=== PATIENT | male | born 1930 | race Caucasian/White ===

== ENCOUNTER 2018-04-19 09:24 | Outpatient (CLI) | payer OTHER ==
[~2018-04-19 09:24] MED LIST: BENADRYL50 MG; JANUVIA100 MG; PRILOSEC20 MG; SIMVASTATIN5 MG
== END 2018-04-19 09:30 | disposition home or self-care (01) ==
LOC: NUCLEAR 09:24
DX: D35.1 Benign neoplasm of parathyroid gland (principal)
CPT/HCPCS: 78072; A9500

== ENCOUNTER 2018-10-05 07:25 | Emergency (ER) | payer OTHER ==
[~2018-10-05] VITALS: Ht 182.9 cm; Wt 83.9 kg
[2018-10-05] MEDS ORDERED: GLIMEPIRIDE2 MG PO (07:44)
[2018-10-05] MEDS ORDERED: METFORMIN HYDRO25 GM MC (07:44)
[2018-10-05] MEDS ORDERED: CELECOXIB100 MG PO (12:28)
[2018-10-05] MEDS ORDERED: SKELAXIN800 MG PO (12:28)
== END 2018-10-05 12:38 | disposition home or self-care (01) ==
LOC: ER
DX: S33.5XXA Sprain of ligaments of lumbar spine, initial encounter (principal); X50.3XXA Overexertion from repetitive movements, initial encounter; Y93.89 Activity, other specified; Y92.098 Other place in other non-institutional residence as the place of occurrence of the external cause; Y99.8 Other external cause status

== ENCOUNTER 2019-01-08 07:14 | Outpatient (CLI) | payer OTHER ==
[~2019-01-08 07:14] MED LIST changes: +CELECOXIB100 MG PO; +GLIMEPIRIDE2 MG PO; +METFORMIN HYDRO25 GM MC; +SKELAXIN800 MG PO
== END 2019-01-08 07:15 | disposition home or self-care (01) ==
LOC: SONOGRAMA 07:14 → MAMO-SONO 08:15
DX: R10.84 Generalized abdominal pain (principal)

== ENCOUNTER → 2019-08-10 | Outpatient (CLI) | payer OTHER | END | disposition home or self-care (01) | LOC: SONOGRAMA 08:36 → MAMO-SONO 08:45 | DX: R35.1 Nocturia (principal) ==

== ENCOUNTER 2020-03-16 09:01 | Outpatient (CLI) | payer OTHER | END 2020-03-16 09:05 | disposition home or self-care (01) | LOC: SONOGRAMA 09:01 | PROVIDERS: ATTEND Specialist | DX: E04.2 Nontoxic multinodular goiter (principal); I13.2 Hypertensive heart and chronic kidney disease with heart failure and with stage 5 chronic kidney disease, or end stage renal disease ==

== ENCOUNTER → 2020-06-29 | Outpatient (CLI) | payer OTHER | END | disposition home or self-care (01) | LOC: MAMO-SONO 10:26 | PROVIDERS: ATTEND Specialist | DX: N64.4 Mastodynia (principal); N64.59 Other signs and symptoms in breast ==

== ENCOUNTER 2021-03-04 08:53 | Outpatient (CLI) | payer OTHER | END 2021-03-04 09:01 | disposition home or self-care (01) | LOC: RAD 08:53 | PROVIDERS: ATTEND Internal Medicine Gastroenterology | DX: M25.531 Pain in right wrist (principal); M25.532 Pain in left wrist ==

== ENCOUNTER 2021-03-09 14:54 | Emergency (ER) | payer OTHER ==
[~2021-03-09] VITALS: Ht 182.9 cm; Wt 80.7 kg
[2021-03-09] MEDS ORDERED: SYNTHROID50 MCG (15:07)
== END 2021-03-09 19:07 | disposition home or self-care (01) ==
LOC: ER 14:54
DX: S93.491A Sprain of other ligament of right ankle, initial encounter (principal); S80.01XA Contusion of right knee, initial encounter; R55 Syncope and collapse; W18.09XA Striking against other object with subsequent fall, initial encounter; Y93.89 Activity, other specified; Y92.018 Other place in single-family (private) house as the place of occurrence of the external cause; Y99.8 Other external cause status

== ENCOUNTER 2021-03-12 08:02 | Outpatient (CLI) | payer OTHER ==
[~2021-03-12 08:02] MED LIST changes: +SYNTHROID50 MCG
== END 2021-03-12 08:03 | disposition home or self-care (01) ==
LOC: NUCLEAR 08:02
PROVIDERS: ATTEND Specialist
DX: G90.01 Carotid sinus syncope (principal); G45.8 Other transient cerebral ischemic attacks and related syndromes

== ENCOUNTER 2021-03-18 08:46 | Outpatient (CLI) | payer OTHER | END 2021-03-18 08:56 | disposition home or self-care (01) | LOC: MRI 08:46 | PROVIDERS: ATTEND Specialist | DX: I63.429 Cerebral infarction due to embolism of unspecified anterior cerebral artery (principal) | CPT/HCPCS: 70552 ==

== ENCOUNTER 2021-09-07 07:26 | Outpatient (CLI) | payer OTHER ==
[2021-09-07] MEDS ORDERED: TRULICITY0.75 MG/0. SQ (11:59)
[2021-09-07] MEDS ORDERED: TRULICITY1.5 MG/0.5 (14:05)
[2021-09-07] MEDS ORDERED: OTREXUP 1212.5 MG/0. (14:06)
[2021-09-07] MEDS ORDERED: TRADJENTA5 MG (14:13)
[2021-09-07] MEDS ORDERED: LEVOXYL25 MCG (14:15)
[2021-09-07] MEDS ORDERED: ADRENOID CAPSU1 EACH (14:16)
[2021-09-07] MEDS ORDERED: ACIDOPHILUS1 EAC1 (14:16)
[2021-09-07] MEDS ORDERED: IRON236 MG (14:16)
[2021-09-07] MEDS ORDERED: ADULT LOW DOSE81 M1 (14:17)
[2021-09-07] MEDS ORDERED: MULTI VITAMIN1 EACH (14:17)
[2021-09-08] MEDS ORDERED: MILLIPRED5 MG PO (12:35)
== END 2021-09-07 07:30 | disposition home or self-care (01) ==
LOC: TOM 07:26
PROVIDERS: ATTEND Specialist
DX: J40 Bronchitis, not specified as acute or chronic (principal)

== ENCOUNTER 2021-09-07 11:35 | Inpatient (IN) | payer OTHER ==
[~2021-09-07] VITALS: Ht 182.9 cm; Wt 70.3 kg
[2021-09-07] MEDS ORDERED: TRULICITY0.75 MG/0. SQ (11:59)
[2021-09-07] MEDS ORDERED: TRULICITY1.5 MG/0.5 (14:05)
[2021-09-07] MEDS ORDERED: OTREXUP 1212.5 MG/0. (14:06)
[2021-09-07] MEDS ORDERED: TRADJENTA5 MG (14:13)
[2021-09-07] MEDS ORDERED: LEVOXYL25 MCG (14:15)
[2021-09-07] MEDS ORDERED: ACIDOPHILUS1 EAC1 (14:16)
[2021-09-07] MEDS ORDERED: ADRENOID CAPSU1 EACH (14:16)
[2021-09-07] MEDS ORDERED: IRON236 MG (14:16)
[2021-09-07] MEDS ORDERED: MULTI VITAMIN1 EACH (14:17)
[2021-09-07] MEDS ORDERED: ADULT LOW DOSE81 M1 (14:17)
[2021-09-08] MEDS ORDERED: MILLIPRED5 MG PO (12:35)
[2021-09-10] MEDS ORDERED: JANUVIA50 MG (09:15)
[2021-09-10] MEDS ORDERED: EZETIMIBE10 MG (09:16)
[2021-09-10] MEDS ORDERED: METHOTREXATE2.5 MG (09:16)
[2021-09-10] MEDS ORDERED: PREDNISONE20 M1 (09:16)
== END 2021-09-15 12:26 | disposition home or self-care (01) | DRG 811 ==
LOC: ER 11:35 → ICU-2 17:05 → MEDJ 09-09 20:24
PROVIDERS: ADMIT Specialist; ATTEND Specialist
PROC: 30233N1 Transfusion of Nonautologous Red Blood Cells into Peripheral Vein, Percutaneous Approach (ICD-10-PCS; principal; 2021-09-08)
PROC: B24BZZZ Ultrasonography of Heart with Aorta (ICD-10-PCS; 2021-09-08)
PROC: 4A12X4Z Monitoring of Cardiac Electrical Activity, External Approach (ICD-10-PCS; 2021-09-10)
PROC: 4A02XM4 Measurement of Cardiac Total Activity, External Approach (ICD-10-PCS; 2021-09-14)
DX: D46.20 Refractory anemia with excess of blasts, unspecified (principal); I21.A1 Myocardial infarction type 2; I47.1 Supraventricular tachycardia; D53.1 Other megaloblastic anemias, not elsewhere classified; I11.9 Hypertensive heart disease without heart failure; Z79.4 Long term (current) use of insulin; Z20.822 Contact with and (suspected) exposure to COVID-19; M35.3 Polymyalgia rheumatica; E11.9 Type 2 diabetes mellitus without complications

== ENCOUNTER 2021-09-21 11:31 | Emergency (ER) | payer OTHER ==
[~2021-09-21] VITALS: Ht 182.9 cm; Wt 70.3 kg
[~2021-09-21 11:31] MED LIST changes: +ACIDOPHILUS1 EAC1; +ADRENOID CAPSU1 EACH; +ADULT LOW DOSE81 M1; +EZETIMIBE10 MG; +IRON236 MG; +JANUVIA50 MG; +LEVOXYL25 MCG; +METHOTREXATE2.5 MG; +MILLIPRED5 MG PO; +MULTI VITAMIN1 EACH; +OTREXUP 1212.5 MG/0.; +PREDNISONE20 M1; +TRADJENTA5 MG; +TRULICITY0.75 MG/0. SQ; +TRULICITY1.5 MG/0.5
[2021-09-21] MEDS ORDERED: LOPRESSOR HCT1 EACH PO (11:42)
[2021-09-21] MEDS ORDERED: AMIODARONE HCL100 MG (11:43)
== END 2021-09-21 14:46 | disposition home or self-care (01) ==
LOC: ER 11:31
DX: R53.1 Weakness (principal); R42 Dizziness and giddiness; M35.3 Polymyalgia rheumatica

== ENCOUNTER 2021-10-23 08:33 | Outpatient (CLI) | payer OTHER ==
[~2021-10-23 08:33] MED LIST changes: +AMIODARONE HCL100 MG; +LOPRESSOR HCT1 EACH PO
== END 2021-10-23 08:39 | disposition home or self-care (01) ==
LOC: RAD 08:33
PROVIDERS: ATTEND Internal Medicine Rheumatology
DX: J45.991 Cough variant asthma (principal)

== ENCOUNTER 2021-11-16 06:38 | Outpatient (CLI) | payer OTHER | END 2021-11-16 06:39 | disposition home or self-care (01) | LOC: LAB 06:38 | PROVIDERS: ATTEND Specialist | DX: H34.8120 Central retinal vein occlusion, left eye, with macular edema (principal); E72.12 Methylenetetrahydrofolate reductase deficiency; M32.9 Systemic lupus erythematosus, unspecified ==

== ENCOUNTER 2021-11-18 08:55 | Outpatient (CLI) | payer OTHER | END 2021-11-18 14:11 | disposition home or self-care (01) | LOC: NUCLEAR 08:55 | PROVIDERS: ATTEND Ophthalmology | DX: H35.82 Retinal ischemia (principal) ==

== ENCOUNTER 2022-02-18 07:02 | Outpatient (CLI) | payer OTHER | END 2022-02-18 07:08 | disposition home or self-care (01) | LOC: LAB 07:02 | PROVIDERS: ATTEND Internal Medicine Hematology & Oncology | DX: D50.8 Other iron deficiency anemias (principal); I10 Essential (primary) hypertension; R74.02 Elevation of levels of lactic acid dehydrogenase [LDH]; K76.89 Other specified diseases of liver; D46.9 Myelodysplastic syndrome, unspecified; E72.12 Methylenetetrahydrofolate reductase deficiency; E72.11 Homocystinuria; M35.3 Polymyalgia rheumatica; D51.3 Other dietary vitamin B12 deficiency anemia; E03.8 Other specified hypothyroidism ==

== ENCOUNTER 2022-03-18 11:43 | Inpatient (IN) | payer OTHER ==
[~2022-03-18] VITALS: Ht 182.9 cm; Wt 70.3 kg
[2022-03-18] MEDS ORDERED: FUSION CAPSULE1 EACH PO (12:07)
[2022-03-18] MEDS ORDERED: TRULICITY0.75 MG/0. (12:08)
[2022-03-18] MEDS ORDERED: METH16TA PO (12:09)
[2022-03-18] MEDS ORDERED: MEDROL4 MG PO (12:09)
[2022-03-22] MEDS ORDERED: PREDNISONE20 M1 (11:27)
[2022-03-22] MEDS ORDERED: CYANOCOBAL1000 MCG/1 (11:27)
[2022-03-22] MEDS ORDERED: ABANEU-SL TABL1 EACH (11:27)
[2022-04-04] MEDS ORDERED: INSULINA LANTUS (19:16)
== END 2022-03-28 22:21 | disposition home or self-care (01) | DRG 280 ==
LOC: ER 11:43 → MEDI 15:10
PROVIDERS: ADMIT Specialist; ATTEND Specialist
PROC: 4A12X4Z Monitoring of Cardiac Electrical Activity, External Approach (ICD-10-PCS; 2022-03-18)
PROC: 30233N1 Transfusion of Nonautologous Red Blood Cells into Peripheral Vein, Percutaneous Approach (ICD-10-PCS; principal; 2022-03-19)
PROC: 06H03DZ Insertion of Intraluminal Device into Inferior Vena Cava, Percutaneous Approach (ICD-10-PCS; 2022-03-26)
DX: I48.21 Permanent atrial fibrillation (principal); E11.00 Type 2 diabetes mellitus with hyperosmolarity without nonketotic hyperglycemic-hyperosmolar coma (NKHHC); I21.A1 Myocardial infarction type 2; I26.93 Single subsegmental thrombotic pulmonary embolism without acute cor pulmonale; D46.C Myelodysplastic syndrome with isolated del(5q) chromosomal abnormality; I82.431 Acute embolism and thrombosis of right popliteal vein; E27.3 Drug-induced adrenocortical insufficiency; I47.1 Supraventricular tachycardia; M35.3 Polymyalgia rheumatica; E11.21 Type 2 diabetes mellitus with diabetic nephropathy; D50.0 Iron deficiency anemia secondary to blood loss (chronic); D63.8 Anemia in other chronic diseases classified elsewhere; E03.9 Hypothyroidism, unspecified; Z79.84 Long term (current) use of oral hypoglycemic drugs; Z79.52 Long term (current) use of systemic steroids; T38.0X5A Adverse effect of glucocorticoids and synthetic analogues, initial encounter

== ENCOUNTER 2022-04-28 09:41 | Inpatient (IN) | payer OTHER ==
[~2022-04-28] VITALS: Ht 182.9 cm; Wt 72.1 kg
[~2022-04-28 09:41] MED LIST changes: +ABANEU-SL TABL1 EACH; +CYANOCOBAL1000 MCG/1; +FUSION CAPSULE1 EACH PO; +INSULINA LANTUS; +MEDROL4 MG PO; +METH16TA PO; +TRULICITY0.75 MG/0.
--- NOTE | 2022-04-28 10:12 | NUR ---
SE RECIBE PTE EN AMBULANCIA ALERTA Y ORIENTADO X3 QUIEN REFIERE HEMOGLOBIMA BAJA (6) DESDE FELIX. SE JONG S/V Y SE UBICA EN OBS #6.
[2022-04-28] MEDS ORDERED: ELIQUIS2.5 MG PO (10:18)
[2022-04-28] MEDS ORDERED: INSULIN LI100 UNIT/3 SQ (10:19)
[2022-04-28] MEDS ORDERED: FOLIC ACID1 MG PO (10:20)
--- NOTE | 2022-04-28 11:27 | NUR ---
PACIENTE EVALUDA POR DR ANGELY PATRICIO QUIEN [place] MED[place], SE ORIENTA A PACIENTE SOBRE EL MISMO Y REFIERE ENTENDER. SE COLECTAN MUESTRAS DE LABORATORIO Y SE CANALIZA BAJO MEDIDAS ASEPTICAS. PACIENTE CANALIZADO EN RA X2 CON ANGIO #20 10:18AM: SE LLAMA A BANCO DE PETER Y MS RAMOS INDICA QUE PACIENTE TIENE RECORD VIGENTE. SE MANTIENE PACIENTE BAJO OBSERVACION POR CAMBIOS EN IRVIN TRATAMIENTO.
--- NOTE | 2022-04-28 13:01 | NUR ---
12:00 SE LLEVA MUESTRA A LABORATORIO Y MS HERNDON VERIFICO REQUICION 12:10PM: SE LLAMA A BANCO DE PETER Y SE NOTIFICA A MS BAUZO QUE SE DEJO REQUISON EN LABORATORIO.
[2022-05-02] MEDS ORDERED: PREDNISONE20 M1 (10:08)
[2022-05-02] MEDS ORDERED: TRULICITY1.5 MG/0.5 (10:08)
== END 2022-06-08 16:44 | DRG 811 ==
LOC: ER 09:41 → SURH 19:39 → ICU-2 20:52 → ICU 05-01 12:38 → MEDJ 05-03 20:34 → ICU 05-06 14:28 → MEDI 05-17 19:51
PROVIDERS: ADMIT Specialist; ATTEND Specialist
PROC: 30233N1 Transfusion of Nonautologous Red Blood Cells into Peripheral Vein, Percutaneous Approach (ICD-10-PCS; principal; 2022-04-28)
PROC: 02HV33Z Insertion of Infusion Device into Superior Vena Cava, Percutaneous Approach (ICD-10-PCS; 2022-05-02)
PROC: 4A12X4Z Monitoring of Cardiac Electrical Activity, External Approach (ICD-10-PCS; 2022-05-03)
PROC: 30243N1 Transfusion of Nonautologous Red Blood Cells into Central Vein, Percutaneous Approach (ICD-10-PCS; 2022-05-07)
PROC: 5A09457 Assistance with Respiratory Ventilation, 24-96 Consecutive Hours, Continuous Positive Airway Pressure (ICD-10-PCS; 2022-05-14)
PROC: 8E0ZXY6 Isolation (ICD-10-PCS; 2022-05-17)
DX: D50.0 Iron deficiency anemia secondary to blood loss (chronic) (principal); J96.01 Acute respiratory failure with hypoxia; D46.C Myelodysplastic syndrome with isolated del(5q) chromosomal abnormality; B37.49 Other urogenital candidiasis; R78.81 Bacteremia; D84.821 Immunodeficiency due to drugs; E72.12 Methylenetetrahydrofolate reductase deficiency; D68.59 Other primary thrombophilia; I27.82 Chronic pulmonary embolism; I48.0 Paroxysmal atrial fibrillation; D51.0 Vitamin B12 deficiency anemia due to intrinsic factor deficiency; E11.65 Type 2 diabetes mellitus with hyperglycemia; B95.61 Methicillin susceptible Staphylococcus aureus infection as the cause of diseases classified elsewhere; M35.3 Polymyalgia rheumatica; E03.9 Hypothyroidism, unspecified; Z79.4 Long term (current) use of insulin; Z79.52 Long term (current) use of systemic steroids; Z95.5 Presence of coronary angioplasty implant and graft; Z66 Do not resuscitate

== ENCOUNTER 2022-07-21 13:20 | Inpatient (IN) | payer OTHER ==
[~2022-07-21] VITALS: Ht 167.6 cm; Wt 63.5 kg
[~2022-07-21 13:20] MED LIST changes: +ELIQUIS2.5 MG PO; +FOLIC ACID1 MG PO; +INSULIN LI100 UNIT/3 SQ
[2022-07-21] MEDS ORDERED: TOPROL XL100 M1 (13:45)
[2022-07-21] MEDS ORDERED: COZAAR50 MG (13:45)
[2022-07-21] MEDS ORDERED: TRADJENTA5 MG (13:45)
[2022-07-21] MEDS ORDERED: REVLIMID5 MG (13:45)
--- NOTE | 2022-07-21 13:46 | NUR ---
SE RECIBE PTE ALERTA Y ORIENTADO EN DEBBY OLAMIDE ESFERAS, EL CUAL LLEGA EN AMBULANCIA, REFIERE HEMOGLOBINA BAJA (6.4) EN LABORATORIOS HACE 2 GARCÍA. SE REALIZA DXT- 68MG/DL. B/P MANUAL 60/28, SE PRESENTA PTE AL DR PATINO Y SE UBICA EN AREA DE CHEST PAIN. PTE INDICA GISELLE TOMADO MEDICAMENTOS PARA HBP Y DE USO DIARIO PARA CONTROL DE GLUCOSA ANTES DE QUE LA AMBULANCIA LO BUSCARA.
--- NOTE | 2022-07-21 15:06 | NUR ---
PTE EVALUADO POR QUIEN [place] MED. SE EDUCA A PTE SOBRE EL MISMO Y REFIERE ENTENDER. PTE BERT JONG MUESTRAS BAJO MEIDAS ACEPTICAS. PTE PEND A ENTREGA DE ORINA. PTE SE CONECTA A MONITOR CARDIACO Y SE MENTIENE EN CAMA BAJA CON BARANDAS ELEVADAS. PTE PEND A CONSULTA DE MD Y RESULTADOS DE LAB.
--- NOTE | 2022-07-21 15:51 | NUR ---
SE COLOCA HARDY BAJO MEDIDAS ESTERILES.
== END 2022-07-26 19:00 | disposition home or self-care (01) | DRG 808 ==
LOC: ER 13:20 → ICU-2 18:47
PROVIDERS: ADMIT Specialist; ATTEND Specialist
PROC: 30233N1 Transfusion of Nonautologous Red Blood Cells into Peripheral Vein, Percutaneous Approach (ICD-10-PCS; principal; 2022-07-22)
PROC: 02HV33Z Insertion of Infusion Device into Superior Vena Cava, Percutaneous Approach (ICD-10-PCS; 2022-07-22)
PROC: 30243N1 Transfusion of Nonautologous Red Blood Cells into Central Vein, Percutaneous Approach (ICD-10-PCS; 2022-07-23)
DX: D61.9 Aplastic anemia, unspecified (principal); I21.A1 Myocardial infarction type 2; D46.C Myelodysplastic syndrome with isolated del(5q) chromosomal abnormality; M33.20 Polymyositis, organ involvement unspecified; E27.2 Addisonian crisis; B37.49 Other urogenital candidiasis; I50.32 Chronic diastolic (congestive) heart failure; I11.0 Hypertensive heart disease with heart failure; I48.91 Unspecified atrial fibrillation; L89.150 Pressure ulcer of sacral region, unstageable; E11.622 Type 2 diabetes mellitus with other skin ulcer; B95.61 Methicillin susceptible Staphylococcus aureus infection as the cause of diseases classified elsewhere; B96.20 Unspecified Escherichia coli [E. coli] as the cause of diseases classified elsewhere; E11.40 Type 2 diabetes mellitus with diabetic neuropathy, unspecified; D51.0 Vitamin B12 deficiency anemia due to intrinsic factor deficiency; Z79.52 Long term (current) use of systemic steroids; D50.0 Iron deficiency anemia secondary to blood loss (chronic)

== ENCOUNTER 2022-09-02 09:44 | Inpatient (IN) | payer OTHER ==
[~2022-09-02] VITALS: Ht 182.9 cm; Wt 65.8 kg
[~2022-09-02 09:44] MED LIST changes: +COZAAR50 MG; +HUMULIN R100 UNIT/1; +LANOXIN62.5 MCG; +REVLIMID5 MG; +TOPROL XL100 M1
[2022-09-02] MEDS ORDERED: TOPROL XL25 M1 PO (10:23)
[2022-09-02] MEDS ORDERED: MEDROL (10:23)
[2022-09-02] MEDS ORDERED: ELIQUIS2.5 MG PO (10:23)
[2022-09-02] MEDS ORDERED: LANOXIN125 MCG PO (10:24)
[2022-09-02] MEDS ORDERED: LEVOTHYROXINE25 MCG PO (10:25)
[2022-09-02] MEDS ORDERED: AUGMENTIN (10:25)
[2022-09-02] MEDS ORDERED: [UNRECOGNIZED DRUG - OTHER] (10:25)
--- NOTE | 2022-09-02 10:26 | NUR ---
SE RECIBE PTE ALERTO Y ORIENTADO X3 EN AMBULANCIA CON FAMILIAR. PTE REFIERE PERDIDA DE VISION EN EL FREDERICK DE HOY 0530, HX DM. VERBALIZA QUE EN EL HOGAR DXT 57, AMBULANCIA VERBALIZA DXT 107 EN HUSSEIN. SE ETHAN DXT Y SV, DXT EN 44. SE REPORTA SV A DR PATINO QUIEN [place] RN COYLE REALIZA LOS MISMOS. RN COYLE REALIZA VENOPUNCION ANGIO #22 RA, IV FLUIDS DXT 5% @100ML/HR. SE MANTIENE EN OBSERVACION.
== END 2022-09-08 15:36 | disposition home or self-care (01) | DRG 637 ==
LOC: ER 09:44 → MEDJ 14:15
PROVIDERS: ADMIT Specialist; ATTEND Specialist
PROC: 4A12X4Z Monitoring of Cardiac Electrical Activity, External Approach (ICD-10-PCS; principal; 2022-09-02)
DX: E11.649 Type 2 diabetes mellitus with hypoglycemia without coma (principal); I21.A1 Myocardial infarction type 2; E27.2 Addisonian crisis; L02.413 Cutaneous abscess of right upper limb; L03.113 Cellulitis of right upper limb; B37.49 Other urogenital candidiasis; D46.C Myelodysplastic syndrome with isolated del(5q) chromosomal abnormality; D84.821 Immunodeficiency due to drugs; E72.12 Methylenetetrahydrofolate reductase deficiency; N17.8 Other acute kidney failure; B95.61 Methicillin susceptible Staphylococcus aureus infection as the cause of diseases classified elsewhere; L89.106 Pressure-induced deep tissue damage of unspecified part of back; I48.91 Unspecified atrial fibrillation; E11.42 Type 2 diabetes mellitus with diabetic polyneuropathy; E11.628 Type 2 diabetes mellitus with other skin complications; D63.0 Anemia in neoplastic disease; I95.89 Other hypotension; E88.09 Other disorders of plasma-protein metabolism, not elsewhere classified; I11.9 Hypertensive heart disease without heart failure; I25.10 Atherosclerotic heart disease of native coronary artery without angina pectoris; I49.5 Sick sinus syndrome; M35.3 Polymyalgia rheumatica; E03.8 Other specified hypothyroidism; Z79.52 Long term (current) use of systemic steroids; Z79.4 Long term (current) use of insulin; Z79.84 Long term (current) use of oral hypoglycemic drugs